=== PATIENT | male | born 2000 | race Caucasian/White ===

== ENCOUNTER 2023-12-23 10:41 | Outpatient (REF) | payer MEDICAID, SELFPAY ==
[2023-12-23 13:44] LABS: Hematocrit 47.5 % (42.0-52.0); Hemoglobin 16.4 g/dl (14.0-18.0); Mean Corpuscular HGB Conc 34.5 g/dl (31.0-36.0); Mean Corpuscular Hemoglobin 29.1 pg (27.0-33.0); Mean Corpuscular Volume 84.4 fL (80.0-98.0); Mean Platelet Volume 10.5 fL (9.4-12.4); Platelet Count 220 X10*3/uL (160-400); Red Blood Count 5.63 X10*6/uL (4.60-5.80); Red Cell Distribution Width 11.9 % (11.0-16.0)
[2023-12-23 13:50] LABS: Estimated Average Glucose 100 mg/dL; Hemoglobin A1C 126.5547 umol/L; Hemoglobin A1c % 5.1 % (<6.0); Total Hemoglobin (HGBA1C) 3971.9966 umol/L
[2023-12-23 14:22] LABS: Alanine Aminotransferase 74 U/L (0-40); Albumin Level 4.6 g/dL (3.5-5.0); Alkaline Phosphatase 82 U/L (39-117); Anion Gap 13 (12-20); Aspartate Amino Transferase 30 U/L (5-37); Bilirubin Direct 0.3 mg/dL (0.0-0.5); Bilirubin Total 1.6 mg/dL (0.0-1.0); Blood Urea Nitrogen 13 mg/dL (9-16); Calcium 10.7 mg/dL (8.4-10.2); Carbon Dioxide 24 mmol/L (22-29); Chloride 105 mmol/L (96-108); Cholesterol 227 mg/dL (<200); Estimated Glomerular Filt Rate > 60; Glucose Random 87 mg/dL (60-115); HDL Cholesterol 34 mg/dL (>40); LDL Cholesterol Calculated 162 mg/dL (<100); Sodium 138 mmol/L (135-145); Total Protein 8.1 g/dL (6.5-8.0); Triglycerides 158 mg/dL (<150)
[2023-12-23 14:36] LABS: Free T4 (Free Thyroxine) 0.97 ng/dL (0.71-1.85); Thyroid Stimulating Hormone 1.85 uIU/mL (0.32-4.0); Vitamin D 25-OH Total 39.3 ng/mL (>30)
[2023-12-24 08:14] LABS: Hepatitis A Antibody IgG REACTIVE (Nonreactive); ~Hepatitis A Antibody IgG 10.89 S/CO (0.00-0.99)
[2023-12-24 08:31] LABS: HBS Num1 0.33 mIU/mL (0-7.99); HBc Num1 0.11 S/CO (0.00-0.79); HBsAGNum1 0.34 S/CO (0.00-0.99); HIV AB/AG Nonreactive (Nonreactive); HIV Num 1 0.12 S/CO (0.00-0.99); Hepatitis B Core Antibody Nonreactive (Nonreactive); Hepatitis B Surface Antigen Negative (Negative); ~HepC Num1 0.25 S/CO (0.00-0.79); ~Hepatitis B Surface Antibody NONREACTIVE (Nonreactive); ~Hepatitis C Antibody Nonreactive (Nonreactive)
[2023-12-24 10:37] LABS: RPR Rapid Plasma Reagin NON-REACTIVE (NON-REACTIVE)
== END 2023-12-23 10:42 | disposition home or self-care (01) ==
LOC: HO.HHCL 10:41
PROVIDERS: Visit Provider Family Medicine
DX: Z00.00 Encounter for general adult medical examination without abnormal findings (principal); Z68.32 Body mass index [BMI] 32.0-32.9, adult
CPT/HCPCS: 36415; 80048; 80061; 80076; 82306; 83036; 84439; 84443; 85027; 86592; 86704; 86706; 86708; 86803; 87340; 87389

== ENCOUNTER 2024-01-04 08:45 | Outpatient (REF) | payer MEDICAID, SELFPAY | END 2024-01-04 08:46 | disposition home or self-care (01) | LOC: HO.US 08:45 | PROVIDERS: PCP Family Medicine; Visit Provider Family Medicine | DX: R19.4 Change in bowel habit (principal) | CPT/HCPCS: 76700 ==

== ENCOUNTER 2024-04-04 08:30 | Outpatient (REF) | payer MEDICAID, SELFPAY ==
--- OUTSIDE RECORDS SUMMARY | 2024-04-04 08:43 | XMS_ITS | Encounter Summary ---
Author Organization [employer] Address [address] [place] [address] 7t [place] [address] Care Team Providers Care Binder Coverstitch Name Role Phone Leatha Wong DO Primary Care Provider [phone]- [phone] Encounter Details Date Type Department Care Team (Late st Contact Info) Description 04/24/2022 Abstract [facility] ADULT D[facility]AL [address] [place], [place] [phone] Sancho Tsai DDS [address] [place], [place] [phone] Social History Tobacco Use Types Packs/Day Years Used Date Smoking Tobacco: Never Passive Smoke Exposure: Never Smokeless Tobacco: Never Sex and Gender Information Value Date Recorded Sex Assigned at Male 12/22/2021 10:21 AM EDT Legal Sex Male 10:21 AM EDT Gender Identity Male 12/22/2021 10:21 AM EDT Sexual Orientation Straight 12/22/2021 10 :21 AM EDT COVID-19 Exposure Response Date Recorded In the last 10 days, have yo u been in contact with someone who was confirmed or suspected to have Coronavirus/COVID-19? No / Unsure 04/16/2022 9:59 AM EST documented as of this encounter Plan of Treatment Not on file documented as of this encounter Visit Diagnoses Not on filedocumented in this encounter Care Teams Binder Coverstitch Relationship Specialty Start Date End Date Leatha Wong DO [address] [place], [place] [phone] PCP - General Family Medicine 11/22/23 documented as of this encounter
--- OUTSIDE RECORDS SUMMARY | 2024-04-04 08:43 | XMS_ITS | Encounter Summary ---
Author Organization [employer] Address [address] [place] [address] 7t [place] [address] Care Team Providers Care Wood Craftsman Name Role Phone Leatha Wong DO Primary Care Provider [phone]- [phone] Encounter Details Date Type Department Care Team (Late st Contact Info) Description 04/24/2022 Abstract [facility] ADULT DENTAL [address] [place], [place] [phone] Sancho Tsai DDS [address] [place], [place] [phone] Social History Tobacco Use Types Packs/Day Years [...] on filedocumented in this encounter Care Teams Wood Craftsman Relationship Specialty Start Date End Date Leatha Wong DO [address] [place], [place] [phone] PCP - General Family Medicine 11/22/23 documented as of this encounter
--- OUTSIDE RECORDS SUMMARY | 2024-04-04 08:43 | XMS_ITS | Clinical Summary ---
Author Organization [employer] Address [address] [place] [address] 7t [place] [address] Care Team Providers Care Vice President Of Instruction Name Role Phone DeepikaLeatha taylor Primary Care Provider Allergies No known active allergies Medications ibuprofen 600 MG tablet TAKE 1 TABLET BY MOUTH FOUR TIMES DAILY WITH MEALS NEEDED Active Saccharomyces boulardii (probiotic) 250 MG capsule Take 1 capsule (250 mg) by mouth Once per day. 90 capsule 3 12/23/2023 Active Active Problems Problem Noted Date Diagnosed Date Dental calculus 04/16/2022 BMI 32.0-32.9,adult 11/23/2011 Resolved Problems Problem Noted Date Diagnosed Date Resolved Date Tooth impaction 05/08/2022 12/23/2023 Gingivitis due to dental plaque 04/16/2022 12/23/2023 Encounters Date Type Department Care Team Description 01/03/2024 Telephone [facility] MEDICINE [address] [place] [phone] Catarina Guidry, RN Results from Last 3 Months Immunizations Name Administration Dates Next Due DTaP 10/18/2006, 4,04/24/2003,02/14,2002 HPV 9-Valent 01/03/2016 HPV, Quadrivalent 04/16/2014 Hep A, ped/adol, 2 dose 08/08/2010,07/17/2009 Hep B, Adolescent or Pediatric 04/24/2003,2002,2002 Hib (HbOC) 01/25/2004,02/14/2003,2002 IPV 10/18/2006, 4,02/14/2003,12/05 Influenza injectable quadriv alent preservative free 03/18/2020,04/29/2018,01/08/2017,01/02,01/26/2014 Influenza, IIV3, injectable 12/08/2010, 0,12/03/2009 Influenza, Split (incl. kurtis fied surface antigen) 04/07/2013,11/23/2011 MMR 10/18/2006,10/26/2003 Meningococcal MCV4P ACYW-135 09/13/2019,04/16/19 15 Pfizer Covid-19 Vaccine 12+ Bivalent 04/07/2022 Pneumococcal Conjugate PCV 7 04/24/2003,02/15/20 03,2002 Tdap 04/16/2014 Varicella 10/18/2006,12/10/2003 Social History Tobacco Use Types Packs/Day Years Used Date Smoking Tobacco: Never Passive Smoke Exposure: Never Smokeless Tobacco: Never Tobacco Cessation:Counseling Given: Not Answered Alcohol Use Standard Drinks/Week Comments Never 0 (1 standard drink = 0.6 oz pur e alcohol) Depression Answer Date Recorded Patient Health Questionnaire-9 Score 1 12/23/2023 Patient Health Questionnaire-9 Score 1 12/23/2023 Last PHQ-9: Questionnaire Data Not on file 1 Housing Stability Answer Date Recorded What is your housing situation today? I have [place] 12/23/[address] you li ve. Do you have problems with any of the following? None of the above 12/23/2023 Food Insecurity Answer Date Recorded Within the past 12 months, y ou worried that your food would run out before you got money to buy more: Never True 12/23/2023 Within the past 12 months,th e food you bought just didn't last and you didn't have enough money to get more: Never True Transportation Answer Date Recorded In the past 12 months, has l ack of transportation kept you from medical appts, meetings, work or from getting things needed for daily living? No 12/23/2023 Utilities Answer Date Recorded In the past 12 months, has t he electric, gas, oil or water company threatened to shut off services in your home? No 12/23/2023 Depression Answer Date Recorded Patient Health Questionnaire-2 Score 0 12/23/2023 Internet Access Answer Date Recorded Internet Access Q1 Yes 12/23/2023 Internet Access Q2 Not on file 12/23/2023 Sex and Gender Information Value Date Recorded Sex Assigned at Male 12/22/2021 10:21 AM EDT Legal Sex Male 10:21 AM EDT Gender Identity Male 12/22/2021 10:21 AM EDT Sexual Orientation Straight 12/22/2021 10 :21 AM EDT Last Filed Vital Signs Vital Sign Reading Time Taken Comments Blood Pressure 114/80 12/23/2023 1:59 PM EDT Pulse 80 12/23/2023 9:33 AM EDT Temperature 36.5 ??C (97.7 ??F) 12/23/2023 9:33 AM ED T Respiratory Rate 18 12/23/2023 9:33 AM EDT Oxygen Saturation 98% 11/12/2022 8:52 AM EDT Inhaled Oxygen Concentration - - Weight 97.5 kg (215 lb) 12/23/2023 9:33 AM EDT Height 172.7 cm (5' 8 ) 12/23/2023 9:33 AM EDT Body Mass Index 32.69 12/23/2023 9:33 AM EDT Plan of Treatment Health Maintenance Due Date Last Done Comments Chlamydia and Gonorrhea Screening 2002 Dental X-Ray: Full Mouth 2002 Alcohol/Substance Use Screening 2014 Family Planning (PISQ) 2017 Dental Oral Exam 10/15/2022 04/16/2022 Dental Prophylaxis 10/15/2022 04/16/2022 Dental X-Ray: Bitewings 04/17/2023 04/16/2022 COVID-19 Vaccine ( season) 2023 04/07/2022, 10/31/2020, 10/10/2020 Influenza Vaccine (#1) 2023 , 04/29/2018, 01/08/2017, Additional history exists DTaP/Tdap/Td Vaccines (7 - Td or Tdap) 04/16/2024 04/16/2014, 10/18/2006, 01/25/2004, Additional history exists Depression Screening 12/22/2024 12/23/2023, 12/23/19 24 SDOH Screening 12/22/2024 12/23/2023 Tobacco Screening 12/22/2024 12/23/2023 Zoster Vaccines (1 of 2) 2052 RSV Patients and Patients Aged 60 years or older (1 - 1-dose 75+ series) 2077 Hepatitis B Vaccines Completed 04/24/2003, 02/14/2003, 2002 Pneumococcal Vaccine: Pediatrics (0 to 5 Years) and At-Risk Patients (6 to 49) Years) Aged Out 04/24/2003, 02/14/2003, 2002 No longer eligible based on patient's age to complete this topic HIB Vaccines Completed 01/25/2004, 01/23, 2002 IPV Vaccines Completed 10/18/2006, 03/2003, 02/14/2003, Additional history exists Hepatitis A Vaccines Completed 08/08/2010, 07/18/19 10 HPV Vaccines Completed 01/03/2016, 04/16/2014 Meningococcal Vaccine Completed 09/13/2019, 015 HIV Screening Completed 12/23/2023 Hepatitis C Screening Completed 12/23/2023 RSV under 20 months Aged Out No longe r eligible based on patient's age to complete this topic Rotavirus Vaccines Aged Out No longer eligible based on patient's age to complete this topic Procedures Procedure Name Priority Date/Time Associated Diagnosis Comments US ABDOMEN COMPLETE Routine 01/04/2024 8 :51 AM EST Frequent bowel movements HEPATITIS C AB W/REFL TO HCV RNA, QN, PCR Routine 12/23/2023 10:45 AM EDT Routine history and physical examination of adult BMI 32.0-32.9,adult HIV 1/2 ANTIGEN/ANTIBODY, FOURTH GENERATION W/RFL Routine 12/23/2023 10:45 AM EDT Routine history and physical examination of adult BMI 32.0-32.9,adult PERIODIC ORAL EVALUATION - ESTABLISHED PATIENT Routine 04/16/2022 11:00 AM EST Full PROPHYLAXIS - ADULT Routine 04/16/2022 10:00 AM EST Dental calculus Gingivitis due to dental plaque BITEWINGS - 4 RADIOGRAPHIC IMAGES Routine 04/16/2022 10:00 AM EST Dental calculus Gingivitis due to dental plaque from Last 3 Months or Most Recently Relevant to Health Maintenance Results * US Abdomen Complete (01/04/2024 8:51 AM EST) Anatomical Region Laterality Modality Abdomen Ultrasound 01/04/2024 8:51 AM EST Narrative 02/13/2024 10:53 AM EST ? [facility] ?[address] ?[place] [address] ? Ultrasound Report ? Signed ? Patient: Alton Morales ?MR#: [id number] ?? [id number] ? : 2000 ?Acct:[id number] ? Age/Sex: 23 / M ?ADM Date: 01/04/24 ? Loc: HO.US ? Attending Dr: Leatha Wong DO ? Ordering Physician: Leatha Wong DO ?? Date of Service: 01/04/24 ?? Procedure(s): US abdomen complete ?? Accession Number(s): [id number] ? cc: Leatha Wong DO ? EXAMINATION: ?? US ABDOMEN COMPLETE ? CLINICAL INFORMATION: ?? Frequent bowel movements. ? COMPARISON: ?? None available. ? TECHNIQUE: ?? Real-time imaging of the abdominal viscera. ? FINDINGS: ? PANCREAS: The visualized portion of the pancreas head and body are ?? normal, portion of the pancreatic body and tail, not visualized are ?? obscured by bowel gas. ? ABDOMINAL AORTA: The proximal, mid, and distal segments are normal in ?? caliber. ? INFERIOR VENA CAVA: Visualized portions are normal. ? LIVER: Normal. The liver is normal in size. The liver contour is ?? normal. Parenchymal echogenicity is normal. No focal hepatic lesion. ?? There is no intrahepatic biliary duct dilatation seen. ? GALLBLADDER: Normal. The gallbladder is physiologically distended ?? without evidence of stones, sludge, polyps, wall thickening or ?? pericholecystic fluid. ? COMMON BILE DUCT: Normal in caliber measuring 0.3 cm in diameter. ? RIGHT KIDNEY: Normal. No hydronephrosis. No renal calculi or focal ?? parenchymal lesions. The kidney measures 9.8 cm in maximum dimension. ? LEFT KIDNEY: Normal. No hydronephrosis. No renal calculi or focal ?? parenchymal lesions. The kidney measures 10.8 cm in maximum dimension. ? SPLEEN: Normal. The spleen measures 11.5 cm in maximum dimension. ? FREE FLUID: None. ? US/US abdomen complete ?? IMPRESSION: ? 1. ??No ultrasound explanation for patient's pain symptoms. ? 2. ??No evidence of gallbladder disease or gallstones. ? Electronically signed by: ??Bala Hare MD ??02/13/2024 10:49 AM EST ? Dictated By: ?Bala Hare MD ? Signed By: ?<Electronically signed by Bala Hare MD in OV> ?02/13/24 1049 ? DD/ 0851 ? TD/TT: 01/04/24 0904 ? Nub Card Tender: HS ? Procedure Note Talha John - 02/13/2024 [place] [address] Ultrasound Report Signed Patient: Alton Morales KMR#: [id number] : 2000Acct:[id number] Age/Sex: 23 / MADM Date: 01/04/24 Loc: HO.US Attending Dr: Leatha Wong DO Ordering Physician: Leatha Wong DO Date of Service: 01/04/24 Procedure(s): US abdomen complete Accession Number(s): [id number] cc: Leatha Wong DO EXAMINATION: US ABDOMEN COMPLETE CLINICAL INFORMATION: Frequent bowel movements. COMPARISON: None available. TECHNIQUE: Real-time imaging of the abdominal viscera. FINDINGS: PANCREAS: The visualized portion of the pancreas head and body are normal, portion of the pancreatic body and tail, not visualized are obscured by bowel gas. ABDOMINAL AORTA: The proximal, mid, and distal segments are normal in caliber. INFERIOR VENA CAVA: Visualized portions are normal. LIVER: Normal. The liver is normal in size. The liver contour is normal. Parenchymal echogenicity is normal. No focal hepatic lesion. There is no intrahepatic biliary duct dilatation seen. GALLBLADDER: Normal. The gallbladder is physiologically distended without evidence of stones, sludge, polyps, wall thickening or pericholecystic fluid. COMMON BILE DUCT: Normal in caliber measuring 0.3 cm in diameter. RIGHT KIDNEY: Normal. No hydronephrosis. No renal calculi or focal parenchymal lesions. The kidney measures 9.8 cm in maximum dimension. LEFT KIDNEY: Normal. No hydronephrosis. No renal calculi or focal parenchymal lesions. The kidney measures 10.8 cm in maximum dimension. SPLEEN: Normal. The spleen measures 11.5 cm in maximum dimension. FREE FLUID: None. US/US abdomen complete IMPRESSION: 1. No ultrasound explanation for patient's pain symptoms. 2. No evidence of gallbladder disease or gallstones. Electronically signed by: Bala Hare MD 02/13/2024 10:49 AM [facility] [place] Dictated By: Bala Hare MD Signed By: <Electronically signed by Bala Hare MD in OV> 02/13/24 1049 DD/ 0851 TD/TT: 01/04/24 0904 Nub Card Tender: HS Leatha Wong DO IM US PROCEDURES Edited Res ult - Final * Hepatitis C Antibody with Reflex to HCV, RNA, Quantitative, Real-Time PCR (12/23/2023 10:45 AM EDT) Hepatitis C Antibody Nonreactive Nonreactive [facility] Comment:Antibodies to HCV no t detected; does not exclude early acuteHCV infection. Blood Venous blood specimen / Unknown 12/23/2023 10:45 AM EDT 12/23/2023 1:17 PM EDT Leatha Wong DO LAB BLOOD ORDERABLES Final R esult [facility] [address] [place] [phone] * HIV-1/2 Antigen and Antibodies, Fourth Generation, with Reflexes (12/23/2023 10:45 AM EDT) HIV AB/AG Nonreactive Nonreactive [facility] Comment:HIV-1 p24 Ag and/or HIV-1/HIV-2 Ab not detected.A test result that is nonreactive does not exclude thepossibility of exposure to or infection with HIV-1 and/orHIV-2. Nonreactive results in this assay for individualswith prior exposure to HIV-1 and/or HIV-2 may be due toantigen and antibody levels that are below the limit ofdetection of this assay.The [employer] HIV Ag/Ab Combo assay result andsupplemental assay results should be interpreted inconjunction with the patient's clinical presentation,history and other laboratory results. If the results areinconsistent with clinical evidence, additional testing issuggested to confirm the result. Blood Venous blood specimen / Unknown 12/23/2023 10:45 AM EDT 12/23/2023 1:17 PM EDT us Leatha Wong DO LAB BLOOD ORDERABLES Final R esult [facility] [address] [place] [phone] from Last 3 Months or Most Recently Relevant to Health Maintenance Insurance [employer] [place] * Guarantor: Alton Morales Account Type Relation to Patient Date of Phone Billing Address Personal/Family Self [place], [place] Care Teams Vice President Of Instruction Relationship Specialty Start Date End Date Leatha Wong DO [address] [place] [phone] PCP - General Family Medicine 11/22/23
[2024-04-04 11:23] LABS: Alanine Aminotransferase 62 U/L (0-40); Albumin Level 4.4 g/dL (3.5-5.0); Alkaline Phosphatase 76 U/L (39-117); Anion Gap 11 (12-20); Aspartate Amino Transferase 29 U/L (5-37); Bilirubin Direct 0.3 mg/dL (0.0-0.5); Bilirubin Total 1.5 mg/dL (0.0-1.0); Blood Urea Nitrogen 12 mg/dL (9-16); Calcium 9.7 mg/dL (8.4-10.2); Carbon Dioxide 27 mmol/L (22-29); Chloride 107 mmol/L (96-108); Estimated Glomerular Filt Rate > 60; Glucose Random 92 mg/dL (60-115); Potassium 4.5 mmol/L (3.3-5.1); Sodium 140 mmol/L (135-145); Total Protein 8.1 g/dL (6.5-8.0)
[2024-04-04 13:16] LABS: CT PCR NOT DETECTED (Not Detect.); NG PCR NOT DETECTED (Not Detect.)
== END 2024-04-04 08:31 | disposition home or self-care (01) ==
LOC: HO.HHCL 08:30
PROVIDERS: Visit Provider Family Medicine
DX: Z00.00 Encounter for general adult medical examination without abnormal findings (principal); Z68.32 Body mass index [BMI] 32.0-32.9, adult
CPT/HCPCS: 36415; 80048; 80076; 87491; 87591

== ENCOUNTER 2024-04-04 09:37 | Outpatient (REF) | payer MEDICAID, SELFPAY ==
--- OUTSIDE RECORDS SUMMARY | 2024-04-04 10:44 | XMS_ITS | Encounter Summary ---
Author Organization [employer] Address [address] [place] [address] 7t [place] [address] Care Team Providers Care Content Designer Name Role Phone Leatha Wong DO Primary Care Provider [phone]- [phone] Encounter Details Date Type Department Care Team (Late st Contact Info) Description 04/24/2022 Abstract [facility] ADULT DENTAL [address] [place], [place] [phone] Sancho Tsai DDS [address] [place], [place] [phone] Social History Tobacco Use Types Packs/Day Years [...] on filedocumented in this encounter Care Teams Content Designer Relationship Specialty Start Date End Date Leatha Wong DO [address] [place], [place] [phone] PCP - General Family Medicine 11/22/23 documented as of this encounter
--- OUTSIDE RECORDS SUMMARY | 2024-04-04 10:44 | XMS_ITS | Encounter Summary ---
Author Organization [employer] Address [address] [place] [address] 7t [place] [address] Care Team Providers Care Skiving Machine Operator Name Role Phone Leatha Wong DO Primary Care Provider [phone]- [phone] Encounter Details Date Type Department Care Team (Late st Contact Info) Description 04/24/2022 Abstract [facility] ADULT DENTAL [address] [place], [place] [phone] Sancho Tsai DDS [address] [place], [place] [phone] Social History Tobacco Use Types Packs/Day Years [...] on filedocumented in this encounter Care Teams Skiving Machine Operator Relationship Specialty Start Date End Date Leatha Wong DO [address] [place], [place] [phone] PCP - General Family Medicine 11/22/23 documented as of this encounter
--- OUTSIDE RECORDS SUMMARY | 2024-04-04 10:44 | XMS_ITS | Clinical Summary ---
Author Organization [employer] Address [address] [place] [address] 7t [place] [address] Care Team Providers Care Hat Former Name Role Phone DeepikaLeatha taylor Primary Care [...] Type Department Care Team Description 01/03/2024 Telephone [facility] MEDICINE [address] [place] [phone] Catarina Guidry, RN Results from Last 3 [...] EST Narrative 02/13/2024 10:53 AM EST ? [facility] ?[address] ?[place] [address] ? Ultrasound Report ? Signed ? Patient: Alton Morales ?MR#: [id number] ?? [id number] ? : 2000 ?Acct:[id number] ? Age/Sex: 23 / M ?ADM Date: 01/04/24 ? Loc: HO.US ? Attending Dr: Leatha Wong DO ? Ordering Physician: Leatha Wong DO ?? Date of Service: 01/04/24 ?? Procedure(s): US abdomen complete ?? Accession Number(s): [id number] ? cc: Leatha Wong DO ? EXAMINATION: [...] DD/ 0851 ? TD/TT: 01/04/24 0904 ? Stock Clerk [employer] Store: HS ? Procedure Note Talha John - 02/13/2024 [place] [address] Ultrasound Report Signed Patient: Alton Morales KMR#: [id number] : 2000Acct:[id number] Age/Sex: 23 / MADM Date: 01/04/24 Loc: HO.US Attending Dr: Leatha Wong DO Ordering Physician: Leatha Wong DO Date of Service: 01/04/24 Procedure(s): US abdomen complete Accession Number(s): [id number] cc: Leatha Wong DO EXAMINATION: US ABDOMEN [...] by: Bala Hare MD 02/13/2024 10:49 AM [facility] [place] Dictated By: Bala Hare MD Signed By: <Electronically signed by Bala Hare MD in OV> 02/13/24 1049 DD/ 0851 TD/TT: 01/04/24 0904 Stock Clerk [employer]: HS Leatha Wnog DO IM US PROCEDURES Edited Res ult - Final * Hepatitis C Antibody with Reflex to HCV, RNA, Quantitative, Real-Time PCR (12/23/2023 10:45 AM EDT) Hepatitis C Antibody Nonreactive Nonreactive [facility] Comment:Antibodies to HCV no t detected; does not exclude early acuteHCV infection. Blood Venous blood specimen / Unknown 12/23/2023 10:45 AM EDT 12/23/2023 1:17 PM EDT Leatha Wong DO LAB BLOOD ORDERABLES Final R esult [facility] [address] [place] [phone] * HIV-1/2 Antigen and Antibodies, Fourth Generation, with Reflexes (12/23/2023 10:45 AM EDT) HIV AB/AG Nonreactive Nonreactive [facility] Comment:HIV-1 p24 Ag and/or HIV-1/HIV-2 Ab not detected.A test result that is nonreactive does not exclude thepossibility of exposure to or infection with HIV-1 and/orHIV-2. Nonreactive results in this assay for individualswith prior exposure to HIV-1 and/or HIV-2 may be due toantigen and antibody levels that are below the limit ofdetection of this assay.The [employer] HIV Ag/Ab Combo assay result andsupplemental assay results should be interpreted inconjunction with the patient's clinical presentation,history and other laboratory results. If the results areinconsistent with clinical evidence, additional testing issuggested to confirm the result. Blood Venous blood specimen / Unknown 12/23/2023 10:45 AM EDT 12/23/2023 1:17 PM EDT us Leatha Wong DO LAB BLOOD ORDERABLES Final R esult [facility] [address] [place] [phone] from Last 3 Months or Most Recently Relevant to Health Maintenance Insurance [employer] [place], [place] ST[place] * Guarantor: Alton Morales Account Type Relation to Patient Date of Phone Billing Address Personal/Family Self [place], [place] Care Teams Hat Former Relationship Specialty Start Date End Date Leatha Wong DO [address] [place] [phone] PCP - General Family Medicine 11/22/23
== END 2024-04-04 09:38 | disposition home or self-care (01) ==
LOC: HO.HHCL 09:37
PROVIDERS: Visit Provider Family Medicine
DX: Z13.89 Encounter for screening for other disorder (principal)